=== PATIENT | male | born 1965 ===

== ENCOUNTER 2017-03-02 01:10 | Emergency (ER) | payer MEDICAID ==
[~2017-03-02] VITALS: Ht 177.8 cm; Wt 190.0 kg
[~2017-03-02 01:10] MED LIST: DEXTROSE 50% 50 ML SYRINGE ONE
[2017-03-02] MEDS ORDERED: DEXTROSE 50% 50 ML SYRINGE ONE (01:13)
[2017-03-02] MEDS ORDERED: NALOXONE 2 MG SYG ONE ×2 (01:14→01:24)
[2017-03-02 01:34] LABS: ABNORMAL IP MESSAGE 1; BASOPHILS % 0.3 % (0.0-2.0); HEMATOCRIT 40.3 % (42.0-52.0); LYMPHOCYTES # 2.2 10^3/ul (0.8-2.9); MEAN CORPUSCULAR HEMOGLOBIN 32.4 pg (29.0-33.0); MEAN CORPUSCULAR HGB CONC 29.8 g/dl (32.0-37.0); MEAN CORPUSCULAR VOLUME 108.9 fl (82.0-101.0); MEAN PLATELET VOLUME 9.8 fl (7.4-10.4); MONOCYTE # 0.7 10^3/ul (0.3-0.9); MONOCYTES % 10.1 % (0.0-11.0); NEUTROPHIL # 3.9 10^3/ul (1.6-7.5); NEUTROPHILS % 56.4 % (39.0-77.0); NUCLEATED RED BLOOD CELLS% 0.4 /100WBC (0.0-0.0); PLATELET COUNT 95 10^3/UL (140-415); RED CELL DISTRIBUTION WIDTH 14.5 % (11.5-14.5); WHITE BLOOD COUNT 6.9 10^3/ul (4.8-10.8)
[2017-03-02 01:39] VITALS: Ht 177.8 cm; Wt 190.0 kg
[2017-03-02 01:57] LABS: ALBUMIN/GLOBULIN RATIO 1.5; BILIRUBIN,INDIRECT 0.5 mg/dl (0-1.1); BILIRUBIN,TOTAL 0.5 mg/dl (0.2-1.3); CALCIUM 6.8 mg/dl (8.4-10.2); CREATININE 2.95 mg/dl (0.61-1.24)
[2017-03-02 02:18] LABS: POTASSIUM 8.3 mmol/L (3.5-5.1)
[2017-03-02 02:19] LABS: CK-MB 38.6 ng/ml (0.0-2.4); TROPONIN-I 3.41 ng/ml (0.00-0.12)
--- NOTE | 2017-03-02 02:40 | ERA ---
ER Documentation Chief Complaint Date/Time DATE: 03/02/17 TIME: On arrival Chief Complaint Full cardiac arrest HPI The patient is 51-year-old male, presenting to the ER because of full cardiac arrest. He was found on the sidewalk, unknown downtime. Bystander called 911. Upon arrival, EMS found him to be in asystole. He was intubated with a Deyvi airway and treated with epinephrine 1 mg 3 intraosseous, 1 ampule D10 water due to acute hypoglycemia, unreadable on the glucometer, 250 mL normal saline. It took the inspector screen printing about 15 minutes to transport him to the hospital. When we undressed him, there are bright red blood at the urethral meatus When he came to the ER, he was in asystole. CPR was in progress. The airway was confirmed with positive end-tidal CO2 and equal bilateral breath sounds. He was treated with epinephrine 1 mg IV 5 for acute asystole, Narcan 2 mg IV for possible overdose, 2 ampules of D50 IV due to hypoglycemia. He remained in asystole the whole time The code started at 1:10 AM and ended at 1:29 AM Diagnostic impression: Status post cardiac arrest Disposition: Patient ROS All systems reviewed and are negative except as per history of present illness. PMhx/Soc Medical and Surgical Hx: Unable to obtain Hx Alcohol Use: No (TRENT) Hx Substance Use: No (TRENT) Hx Tobacco Use: No (TRENT) Smoking Status: Unknown if ever smoked Physical Exam Physical Exam Const: [] Head: Atraumatic Eyes: Normal Conjunctiva ENT: Normal External Ears, Nose and Mouth. Neck: Full range of motion..~ No meningismus. Resp: Clear to auscultation bilaterally Cardio: Regular rate and rhythm, no murmurs Abd: Soft, non tender, non distended. Normal bowel sounds Skin: No petechiae or rashes Back: No midline or flank tenderness Ext: No cyanosis, or edema Neur: Awake and alert Psych: Normal Mood and Affect Result Diagram: 03/02/1711703/02/178 Results 24 hrs Laboratory Tests Test 03/02/17 01:13 03/02/17 01:18 03/02/17 01:20 Bedside Glucose 56mg/dL 291mg/dL White Blood Count 6.910^3/ul Red Blood Count 3.7010^6/ul Hemoglobin 12.0g/dl Hematocrit 40.3% Mean Corpuscular Volume 108.9fl Mean Corpuscular Hemoglobin 32.4pg Mean Corpuscular Hemoglobin Concent 29.8g/dl Red Cell Distribution Width 14.5% Platelet Count 9510^3/UL Mean Platelet Volume 9.8fl Neutrophils % 56.4% Lymphocytes % 32.0% Monocytes % 10.1% Eosinophils % 0.0% Basophils % 0.3% Nucleated Red Blood Cells % 0.4/100WBC Neutrophils # 3.910^3/ul Lymphocytes # 2.210^3/ul Monocytes # 0.710^3/ul Eosinophils # 0.010^3/ul Basophils # 0.010^3/ul Nucleated Red Blood Cells # 0.010^3/ul Sodium Level 129mmol/L Potassium Level 8.3mmol/L Chloride Level 89mmol/L Carbon Dioxide Level 12mmol/L Anion Gap 36 Blood Urea Nitrogen 28mg/dl Creatinine 2.95mg/dl Glucose Level 658mg/dl Calcium Level 6.8mg/dl Total Bilirubin 0.5mg/dl Direct Bilirubin 0.00mg/dl Indirect Bilirubin 0.5mg/dl Aspartate Amino Transf (AST/SGOT) 1454IU/L Alanine Aminotransferase (ALT/SGPT) 994IU/L Alkaline Phosphatase 48IU/L Creatinine Kinase MB (Mass) 38.60ng/ml Troponin I 3.410ng/ml Total Protein 5.0g/dl Albumin 3.0g/dl Globulin 2.00g/dl Albumin/Globulin Ratio 1.50 CHICA BERUMEN MD Mar 02, 2017 02:39
--- NOTE | 2017-03-02 02:48 | ERA ---
ER Documentation Chief Complaint Date/Time DATE: 03/02/17 Chief Complaint Full cardiac arrest HPI The patient is 51-year-old male, presenting to the ER because of full cardiac arrest. He was found on the sidewalk, unknown downtime. Bystander called 911. Upon arrival, EMS found him to be in asystole. He was intubated with a Deyvi airway and treated with epinephrine 1 mg 3 intraosseous, 1 ampule D10 water due to acute hypoglycemia, unreadable on the glucometer, 250 mL normal saline. It took the railroad signal and switch operator about 15 minutes to transport him to the hospital. When we undressed him, there are bright red blood at the urethral meatus Past medical/surgical history/social history/review of system: Unable to obtain due to his condition ROS Unable to obtain due to his condition PMhx/Soc Medical and Surgical Hx: Unable to obtain Hx Alcohol Use: No (TRENT) Hx Substance Use: No (TRENT) Hx Tobacco Use: No (TRENT) Smoking Status: Unknown if ever smoked Physical Exam Physical Exam Const: Acute distress. Head: Atraumatic. Neck: No hematoma, crepitus. Resp: Clear to auscultation bilaterally with ambubag Cardio: Asystole Abd: Distended and firmed Skin: No hematoma, petechiae or rashes. Back: No hematoma, crepitus Ext: Cyanosis Result Diagram: 03/02/1711703/02/17117 Results 24 hrs Laboratory Tests Test 03/02/17 01:13 03/02/17 01:18 03/02/17 01:20 Bedside Glucose 56mg/dL 291mg/dL White Blood Count 6.910^3/ul Red Blood Count 3.7010^6/ul Hemoglobin 12.0g/dl Hematocrit 40.3% Mean Corpuscular Volume 108.9fl Mean Corpuscular Hemoglobin 32.4pg Mean Corpuscular Hemoglobin Concent 29.8g/dl Red Cell Distribution Width 14.5% Platelet Count 9510^3/UL Mean Platelet Volume 9.8fl Neutrophils % 56.4% Lymphocytes % 32.0% Monocytes % 10.1% Eosinophils % 0.0% Basophils % 0.3% Nucleated Red Blood Cells % 0.4/100WBC Neutrophils # 3.910^3/ul Lymphocytes # 2.210^3/ul Monocytes # 0.710^3/ul Eosinophils # 0.010^3/ul Basophils # 0.010^3/ul Nucleated Red Blood Cells # 0.010^3/ul Sodium Level 129mmol/L Potassium Level 8.3mmol/L Chloride Level 89mmol/L Carbon Dioxide Level 12mmol/L Anion Gap 36 Blood Urea Nitrogen 28mg/dl Creatinine 2.95mg/dl Glucose Level 658mg/dl Calcium Level 6.8mg/dl Total Bilirubin 0.5mg/dl Direct Bilirubin 0.00mg/dl Indirect Bilirubin 0.5mg/dl Aspartate Amino Transf (AST/SGOT) 1454IU/L Alanine Aminotransferase (ALT/SGPT) 994IU/L Alkaline Phosphatase 48IU/L Creatinine Kinase MB (Mass) 38.60ng/ml Troponin I 3.410ng/ml Total Protein 5.0g/dl Albumin 3.0g/dl Globulin 2.00g/dl Albumin/Globulin Ratio 1.50 Procedures/MDM When he came to the ER, he was in asystole. CPR was in progress. The airway was confirmed with positive end-tidal CO2 and equal bilateral breath sounds. He was treated with epinephrine 1 mg IV 5 for acute asystole, Narcan 2 mg IV for possible overdose, 2 ampules of D50 IV due to hypoglycemia. He remained in asystole the whole time The blood test was submitted to the lab, however the patient before the results came back The code started at 1:10 AM and ended at 1:29 AM Departure Diagnosis: Primary Impression: Cardiac arrest Comments pt CHICA BERUMEN MD Mar 02, 2017 02:48
[2017-03-02] MEDS ORDERED: EPINEPHrine 0.1 MG/ML SYG ONE (07:00)
== END 2017-03-02 07:16 | disposition expired ==
LOC: E/R 01:10
DX: I46.9 Cardiac arrest, cause unspecified (principal)
CPT/HCPCS: 80053; 82553; 82962; 84484; 85025; 92950; J0171; J2310; Z7610